=== PATIENT | male | born 1970 | race Caucasian/White ===

== ENCOUNTER 2020-07-09 16:52 | Emergency (ER) | payer OTHER ==
[2020-07-09 16:59] VITALS: BP 147/82; PULSE 86; TEMP 98.3; BMI 32.3
[2020-07-09] MEDS ORDERED: FLUORESCEIN NA 1 EA STRIP OD ONE (17:56)
[2020-07-09] MEDS ORDERED: TETRACAINE 0.5% HCL 0.6ML DROPPER.BOTTLE OD ONE (17:56)
[2020-07-09] MEDS ORDERED: TETRACAINE 0.5% OPHTH SOLN 2 ML BOTTLE ONE (17:57)
[2020-07-09] MEDS ORDERED: ERYTHROMYCIN 0.5% OPHTHALMIC OINTMENT 3.5 GM TUBE OS ONE (18:16)
[2020-07-09] MEDS ORDERED: ERYTHROMYCIN 0.5% OPHTHALMIC OINTMENT 3.5 GM TUBE ONE (18:31)
== END 2020-07-09 18:34 | disposition home or self-care (01) ==
LOC: JER 16:52 → JERFT 16:52
DX: S05.02XA Injury of conjunctiva and corneal abrasion without foreign body, left eye, initial encounter (principal)
CPT/HCPCS: 99283-25

== ENCOUNTER 2023-03-30 10:07 | Inpatient (IN) | payer OTHER ==
[2023-03-30] MEDS ORDERED: SODIUM CHLORIDE 0.9% 1000 ML INFUS.BAG IV ONE (10:38)
[2023-03-30] MEDS ORDERED: FAMOTIDINE 20 MG/50 ML IVPB 20 MG/50 ML MG IVPB ONE ×2 (10:38→11:11)
[2023-03-30] MEDS ORDERED: ACETAMINOPHEN 1000 MG/100 ML BAG IVPB ONE (10:39)
[2023-03-30] MEDS ORDERED: ACETAMINOPHEN INJECTION 100 ML IVPB ONE (11:12)
[2023-03-30 11:55] LABS: INR 1.39 (0.83-1.09); PROTHROMBIN TIME (PATIENT) 16.1 SEC (9.7-13.0)
[2023-03-30 11:57] LABS: ACTIVATED PTT 37.5 SECONDS (25.2-36.5)
[2023-03-30 11:58] LABS: HEMATOCRIT 49.7 % (35.4-49); HEMOGLOBIN 16.7 G/dL (11.7-16.9); MCH 28.1 pg (25.7-33.7); MCHC 33.5 g/dl (32.0-35.9); MEAN CELL VOLUME 83.8 fl (80-96); RBC 5.93 10^6/uL (4.00-5.60); RDW 15.2 % (11.9-15.9); WHITE BLOOD COUNT 13.9 10^3/uL (4.0-10.8)
[2023-03-30 12:11] LABS: ALBUMIN 4.4 g/dl (3.4-5.0); BILIRUBIN,TOTAL 1.7 mg/dl (0.2-1); BLOOD UREA NITROGEN 15.5 mg/dl (7-18); POTASSIUM 3.5 mmol/L (3.5-5.1); SGOT/AST 22.2 U/L (15-37); SGPT/ALT 36.6 U/L (7-52); TOT PROT 7.7 g/dl (6.4-8.2)
[2023-03-30 12:35] LABS: URINE MUCUS FEW
[2023-03-30 13:03] LABS: PLATELET ESTIMATE ADEQUATE
[2023-03-30] MEDS ORDERED: PIPERACILLIN/TAZOB 4.5 GM 4.5 GM in DEXTROSE 5%-WATER 100 ML IVPB ONE (13:25)
[2023-03-30] MEDS ORDERED: PIPERACILLIN/TAZOBACTAM 4.5 GM VIAL IVPB ONE (14:01)
[2023-03-30] MEDS ORDERED: PIPERACILLIN/TAZOB 3.375 GM 3.375 GM in DEXTROSE 5%-WATER - 50 ML IVPB ONE (21:44)
[2023-03-30] MEDS: SODIUM CHLORIDE 1,000 ML IV SCH (23:18)
[2023-03-31] MEDS ORDERED: ACETAMINOPHEN 1000 MG/100 ML BAG IVPB PRN (08:30)
[2023-03-31] MEDS ORDERED: PIPERACILLIN/TAZOB 4.5 GM 4.5 GM in DEXTROSE 5%-WATER 100 ML IVPB SCH (09:00)
[2023-03-31] MEDS: PIPERACILLIN/TAZOB 3.375 GM 3.375 GM in DEXTROSE 5%-WATER - 50 ML IVPB SCH ×2 (11:02→18:12)
[2023-03-31 11:39] LABS: BASO % 0.2 % (0-2.0); EOS % 0.1 % (0-4.5); HEMATOCRIT 42.6 % (35.4-49); HEMOGLOBIN 14.2 GM/dL (11.7-16.9); MCH 27.4 pg (25.7-33.7); MCHC 33.4 g/dl (32.0-35.9); MEAN PLT VOLUME 8.7 fl (7.5-11.1); MONO % 7.1 % (3.8-10.2); NEUT % 80.6 % (42.8-82.8); PLATELET COUNT 221 10^3/uL (134-434); RBC 5.19 M/mm3 (4.00-5.60); RDW 14.2 % (11.9-15.9); WHITE BLOOD COUNT 12.4 K/mm3 (4.0-10.0)
[2023-03-31 16:13] VITALS: BMI 32.5
[2023-03-31] MEDS: SODIUM CHLORIDE 1,000 ML IV SCH (17:34)
[2023-04-01] MEDS: PIPERACILLIN/TAZOB 3.375 GM 3.375 GM in DEXTROSE 5%-WATER - 50 ML IVPB SCH ×3 (02:20→17:31)
[2023-04-01] MEDS: SODIUM CHLORIDE 1,000 ML IV SCH (06:16)
[2023-04-01] MEDS: LEVOTHYROXINE NA 50 MCG TABLET (FP) PO SCH (06:16)
[2023-04-01 10:34] LABS: BASO % 0.2 % (0-2.0); EOS % 0.3 % (0-4.5); HEMOGLOBIN 14.6 GM/dL (11.7-16.9); LYMPH % 13.4 % (8-40); MCH 27.9 pg (25.7-33.7); MCHC 33.9 g/dl (32.0-35.9); MEAN CELL VOLUME 82.2 fl (80-96); MEAN PLT VOLUME 8.1 fl (7.5-11.1); MONO % 8.4 % (3.8-10.2); NEUT % 77.7 % (42.8-82.8); PLATELET COUNT 235 10^3/uL (134-434); RBC 5.24 M/mm3 (4.00-5.60); RDW 13.8 % (11.9-15.9)
[2023-04-01 10:50] LABS: POTASSIUM 3.4 mmol/L (3.5-5.1)
[2023-04-01 10:57] LABS: BLOOD UREA NITROGEN 14.4 mg/dL (7-18)
[2023-04-01 11:05] LABS: ALBUMIN 2.8 g/dl (3.4-5.0); CALCIUM 8.2 mg/dL (8.5-10.1)
[2023-04-01 11:07] LABS: CREATININE 0.8 mg/dL (0.55-1.3)
[2023-04-01 11:10] LABS: BILIRUBIN,TOTAL 1.1 mg/dL (0.2-1); TOT PROT 6.6 g/dl (6.4-8.2)
[2023-04-01] MEDS ORDERED: SODIUM CHLORIDE 0.9%/KCL 20 MEQ/1,000 ML INFUS.BAG IV SCH (12:15)
[2023-04-02] MEDS: PIPERACILLIN/TAZOB 3.375 GM 3.375 GM in DEXTROSE 5%-WATER - 50 ML IVPB SCH ×3 (02:30→17:39)
[2023-04-02] MEDS: SODIUM CHLORIDE 1,000 ML with POTASSIUM CHLORIDE 20 MEQ IV SCH ×2 (05:31→22:23)
[2023-04-02] MEDS: LEVOTHYROXINE NA 50 MCG TABLET (FP) PO SCH (06:40)
[2023-04-02 11:13] LABS: HEMATOCRIT 42.1 % (35.4-49); HEMOGLOBIN 15.1 GM/dL (11.7-16.9); MCH 28.7 pg (25.7-33.7); MCHC 35.8 g/dl (32.0-35.9); MEAN CELL VOLUME 80.3 fl (80-96); MEAN PLT VOLUME 7.7 fl (7.5-11.1); PLATELET COUNT 263 10^3/uL (134-434); RBC 5.24 M/mm3 (4.00-5.60); WHITE BLOOD COUNT 9.2 K/mm3 (4.0-10.0)
[2023-04-02 11:38] LABS: POTASSIUM 3.6 mmol/L (3.5-5.1)
[2023-04-02 11:49] LABS: ALBUMIN 2.9 g/dl (3.4-5.0); BLOOD UREA NITROGEN 11.9 mg/dL (7-18); CALCIUM 8.3 mg/dL (8.5-10.1)
[2023-04-02 11:51] LABS: CREATININE 0.8 mg/dL (0.55-1.3)
[2023-04-02 11:53] LABS: BILIRUBIN,TOTAL 0.9 mg/dL (0.2-1)
[2023-04-02 11:54] LABS: TOT PROT 6.8 g/dl (6.4-8.2)
[2023-04-03] MEDS: PIPERACILLIN/TAZOB 3.375 GM 3.375 GM in DEXTROSE 5%-WATER - 50 ML IVPB SCH ×3 (01:10→17:10)
[2023-04-03] MEDS: LEVOTHYROXINE NA 50 MCG TABLET (FP) PO SCH (06:17)
[2023-04-03] MEDS ORDERED: ACETAMINOPHEN 325 MG TABLET (FP) PO PRN (08:16)
[2023-04-03] MEDS: SODIUM CHLORIDE 1,000 ML with POTASSIUM CHLORIDE 20 MEQ IV SCH ×2 (09:20→10:30)
[2023-04-04] MEDS: PIPERACILLIN/TAZOB 3.375 GM 3.375 GM in DEXTROSE 5%-WATER - 50 ML IVPB SCH ×3 (01:20→17:30)
[2023-04-04] MEDS ORDERED: SIMETHICONE 80 MG TAB.CHEW (FP) PO PRN (06:08)
[2023-04-04] MEDS: LEVOTHYROXINE NA 50 MCG TABLET (FP) PO SCH (06:12)
[2023-04-04] MEDS: SODIUM CHLORIDE 1,000 ML with POTASSIUM CHLORIDE 20 MEQ IV SCH ×2 (06:14→19:11)
[2023-04-04 09:46] LABS: HEMATOCRIT 45.1 % (35.4-49); HEMOGLOBIN 15.1 GM/dL (11.7-16.9); MCH 27.6 pg (25.7-33.7); MCHC 33.6 g/dl (32.0-35.9); MEAN CELL VOLUME 82.1 fl (80-96); PLATELET COUNT 296 10^3/uL (134-434); RBC 5.49 M/mm3 (4.00-5.60); WHITE BLOOD COUNT 11.8 K/mm3 (4.0-10.0)
[2023-04-04 09:52] LABS: POTASSIUM 3.7 mmol/L (3.5-5.1)
[2023-04-04 10:00] LABS: ALBUMIN 3.1 g/dl (3.4-5.0); BLOOD UREA NITROGEN 6.8 mg/dL (7-18); CREATININE 0.8 mg/dL (0.55-1.3)
[2023-04-04 10:02] LABS: BILIRUBIN,TOTAL 0.6 mg/dL (0.2-1)
[2023-04-04 10:03] LABS: CALCIUM 8.5 mg/dL (8.5-10.1)
[2023-04-04] MEDS ORDERED: ACETAMINOPHEN 325 MG TABLET (FP) PO ONE (11:45)
[2023-04-05] MEDS: PIPERACILLIN/TAZOB 3.375 GM 3.375 GM in DEXTROSE 5%-WATER - 50 ML IVPB SCH ×3 (03:21→17:53)
[2023-04-05] MEDS: LEVOTHYROXINE NA 50 MCG TABLET (FP) PO SCH (06:24)
[2023-04-05] MEDS: SODIUM CHLORIDE 0.9%/KCL 20 MEQ/1,000 ML INFUS.BAG IV SCH ×2 (08:25→18:01)
[2023-04-05 08:38] LABS: BASO % 0.6 % (0-2.0); EOS % 1.4 % (0-4.5); HEMOGLOBIN 14.3 GM/dL (11.7-16.9); LYMPH % 15.5 % (8-40); MCHC 34.2 g/dl (32.0-35.9); MEAN CELL VOLUME 82.1 fl (80-96); MEAN PLT VOLUME 7.5 fl (7.5-11.1); NEUT % 71.5 % (42.8-82.8); PLATELET COUNT 309 10^3/uL (134-434); RBC 5.11 M/mm3 (4.00-5.60); RDW 14.1 % (11.9-15.9); WHITE BLOOD COUNT 8.8 K/mm3 (4.0-10.0)
[2023-04-05 08:54] LABS: POTASSIUM 3.8 mmol/L (3.5-5.1)
[2023-04-05 08:56] LABS: BLOOD UREA NITROGEN 7.8 mg/dL (7-18); CALCIUM 8.4 mg/dL (8.5-10.1)
[2023-04-05 09:00] LABS: CREATININE 0.9 mg/dL (0.55-1.3)
[2023-04-06] MEDS: PIPERACILLIN/TAZOB 3.375 GM 3.375 GM in DEXTROSE 5%-WATER - 50 ML IVPB SCH ×2 (01:37→09:09)
[2023-04-06 08:13] VITALS: BP 128/96; PULSE 84; RESP 19; TEMP 98.2
[2023-04-06 10:52] LABS: POTASSIUM 3.8 mmol/L (3.5-5.1)
[2023-04-06 10:56] LABS: CALCIUM 8.3 mg/dL (8.5-10.1)
[2023-04-06 10:57] LABS: ALBUMIN 2.8 g/dl (3.4-5.0); BLOOD UREA NITROGEN 9.8 mg/dL (7-18)
[2023-04-06 11:01] LABS: BILIRUBIN,TOTAL 0.6 mg/dL (0.2-1); TOT PROT 6.9 g/dl (6.4-8.2)
[2023-04-06 11:06] LABS: BASO % 0.8 % (0-2.0); EOS % 0.9 % (0-4.5); HEMATOCRIT 43.1 % (35.4-49); HEMOGLOBIN 14.4 GM/dL (11.7-16.9); LYMPH % 16.4 % (8-40); MCH 27.7 pg (25.7-33.7); MCHC 33.4 g/dl (32.0-35.9); MEAN PLT VOLUME 7.5 fl (7.5-11.1); MONO % 7.3 % (3.8-10.2); NEUT % 74.6 % (42.8-82.8); PLATELET COUNT 353 10^3/uL (134-434); RDW 13.9 % (11.9-15.9); WHITE BLOOD COUNT 7.7 K/mm3 (4.0-10.0)
== END 2023-04-06 11:01 | disposition home or self-care (01) | DRG 244 ==
LOC: FER 10:07 → J5S 21:34
PROVIDERS: ADMIT Internal Medicine; ATTEND Internal Medicine
DX: K57.20 Diverticulitis of large intestine with perforation and abscess without bleeding (principal); I10 Essential (primary) hypertension; E03.9 Hypothyroidism, unspecified; R50.9 Fever, unspecified; E66.9 Obesity, unspecified; Z68.32 Body mass index [BMI] 32.0-32.9, adult; Q21.3 Tetralogy of Fallot; N39.0 Urinary tract infection, site not specified; B95.2 Enterococcus as the cause of diseases classified elsewhere; Z95.810 Presence of automatic (implantable) cardiac defibrillator
CPT/HCPCS: 36415; 74177-TC; 80048; 80053; 81003; 81015; 85025; 85027; 85610; 85730; 86140; 86850; 86900; 86901; 87040; 87086; 87186; 99285-25; Q9967

== ENCOUNTER 2023-07-23 10:51 | Inpatient (IN) | payer OTHER ==
[2023-07-23] MEDS ORDERED: SODIUM CHLORIDE 0.9% 500 ML INFUS.BAG IV ONE (11:15)
[2023-07-23] MEDS ORDERED: ACETAMINOPHEN 1000 MG/100 ML BAG IVPB ONE (11:15)
[2023-07-23] MEDS ORDERED: ACETAMINOPHEN INJECTION 100 ML IVPB ONE (11:43)
[2023-07-23 12:20] LABS: BASO % 0.4 % (0-2.0); EOS % 0.5 % (0-4.5); HEMATOCRIT 46.5 % (35.4-49); HEMOGLOBIN 15.8 GM/dL (11.7-16.9); LYMPH % 14.3 % (8-40); MCH 28.1 pg (25.7-33.7); MEAN CELL VOLUME 82.5 fl (80-96); MEAN PLT VOLUME 7.9 fl (7.5-11.1); MONO % 6.4 % (3.8-10.2); NEUT % 78.4 % (42.8-82.8); PLATELET COUNT 238 10^3/uL (134-434); RBC 5.64 M/mm3 (4.00-5.60); RDW 14.3 % (11.9-15.9); WHITE BLOOD COUNT 11.1 K/mm3 (4.0-10.0)
[2023-07-23 12:34] LABS: POTASSIUM 3.8 mmol/L (3.5-5.1)
[2023-07-23 12:36] LABS: CALCIUM 8.9 mg/dL (8.5-10.1)
[2023-07-23 12:37] LABS: ALBUMIN 3.6 g/dl (3.4-5.0); BLOOD UREA NITROGEN 17.9 mg/dL (7-18)
[2023-07-23 12:40] LABS: CREATININE 0.9 mg/dL (0.55-1.3)
[2023-07-23 12:41] LABS: BILIRUBIN,TOTAL 0.6 mg/dL (0.2-1); TOT PROT 7.5 g/dl (6.4-8.2)
[2023-07-23 14:25] VITALS: RESP 18
[2023-07-23] MEDS ORDERED: PIPERACILLIN/TAZOB 3.375 GM 3.375 GM in DEXTROSE 5%-WATER - 50 ML IVPB ONE (14:38)
[2023-07-23 14:46] LABS: INR 1.14 (0.83-1.09); PROTHROMBIN TIME (PATIENT) 13.2 SEC (9.7-13.0)
[2023-07-23] MEDS ORDERED: PIPERACILLIN/TAZOB 3.375 GM 3.375 GM/50 ML BAG IVPB ONE (15:12)
[2023-07-23] MEDS: D5-1/2NS+10 MEQ KCL - 10 MEQ/1,000 ML INFUS.BAG IV SCH (19:14)
[2023-07-23] MEDS ORDERED: PIPERACILLIN/TAZOB 3.375 GM 3.375 GM in DEXTROSE 5%-WATER - 50 ML IVPB SCH (21:00)
[2023-07-23] MEDS: PIPERACILLIN/TAZOB 3.375 GM 3.375 GM in DEXTROSE 5%-WATER - 50 ML IVPB SCH (22:00)
[2023-07-24] MEDS: ACETAMINOPHEN 1000 MG/100 ML BAG IVPB PRN ×2 (00:39→15:52)
[2023-07-24 03:39] VITALS: BMI 32.8
[2023-07-24] MEDS: PIPERACILLIN/TAZOB 3.375 GM 3.375 GM in DEXTROSE 5%-WATER - 50 ML IVPB SCH ×3 (05:49→17:45)
[2023-07-24] MEDS: LEVOTHYROXINE NA 50 MCG TABLET (FP) PO SCH (06:58)
[2023-07-24 10:09] LABS: HEMOGLOBIN 15.4 GM/dL (11.7-16.9); MCH 27.9 pg (25.7-33.7); MCHC 33.5 g/dl (32.0-35.9); MEAN CELL VOLUME 83.2 fl (80-96); MEAN PLT VOLUME 8.1 fl (7.5-11.1); PLATELET COUNT 215 10^3/uL (134-434); RBC 5.53 M/mm3 (4.00-5.60); RDW 14.1 % (11.9-15.9); WHITE BLOOD COUNT 11.1 K/mm3 (4.0-10.0)
[2023-07-24 10:27] LABS: POTASSIUM 3.5 mmol/L (3.5-5.1)
[2023-07-24 10:30] LABS: CALCIUM 8.5 mg/dL (8.5-10.1)
[2023-07-24 10:31] LABS: ALBUMIN 3.1 g/dl (3.4-5.0); BLOOD UREA NITROGEN 9.5 mg/dL (7-18)
[2023-07-24 10:36] LABS: BILIRUBIN,TOTAL 2.4 mg/dL (0.2-1); TOT PROT 6.7 g/dl (6.4-8.2)
[2023-07-24] MEDS: D5-1/2NS+10 MEQ KCL - 10 MEQ/1,000 ML INFUS.BAG IV SCH (18:12)
[2023-07-25] MEDS: PIPERACILLIN/TAZOB 3.375 GM 3.375 GM in DEXTROSE 5%-WATER - 50 ML IVPB SCH ×3 (02:16→17:19)
[2023-07-25] MEDS: LEVOTHYROXINE NA 50 MCG TABLET (FP) PO SCH (06:15)
[2023-07-25] MEDS: D5-1/2NS+10 MEQ KCL - 10 MEQ/1,000 ML INFUS.BAG IV SCH ×2 (06:17→21:18)
[2023-07-25 10:30] LABS: HEMATOCRIT 44.5 % (35.4-49); HEMOGLOBIN 15.4 GM/dL (11.7-16.9); MCH 28.4 pg (25.7-33.7); MCHC 34.5 g/dl (32.0-35.9); MEAN CELL VOLUME 82.5 fl (80-96); MEAN PLT VOLUME 8.4 fl (7.5-11.1); PLATELET COUNT 213 10^3/uL (134-434); RDW 13.9 % (11.9-15.9); WHITE BLOOD COUNT 10.2 K/mm3 (4.0-10.0)
[2023-07-25 10:42] LABS: POTASSIUM 3.6 mmol/L (3.5-5.1)
[2023-07-25 10:46] LABS: BLOOD UREA NITROGEN 9.8 mg/dL (7-18); CALCIUM 8.3 mg/dL (8.5-10.1)
[2023-07-25 10:49] LABS: CREATININE 0.9 mg/dL (0.55-1.3)
[2023-07-25 10:50] LABS: BILIRUBIN,TOTAL 2.4 mg/dL (0.2-1)
[2023-07-26] MEDS: PIPERACILLIN/TAZOB 3.375 GM 3.375 GM in DEXTROSE 5%-WATER - 50 ML IVPB SCH ×3 (02:03→17:03)
[2023-07-26] MEDS: LEVOTHYROXINE NA 50 MCG TABLET (FP) PO SCH (06:02)
[2023-07-26 10:44] LABS: POTASSIUM 3.6 mmol/L (3.5-5.1)
[2023-07-26 10:53] LABS: BASO % 0.4 % (0-2.0); EOS % 1.2 % (0-4.5); HEMATOCRIT 44.5 % (35.4-49); HEMOGLOBIN 15.6 GM/dL (11.7-16.9); LYMPH % 20.4 % (8-40); MCH 28.9 pg (25.7-33.7); MCHC 35.1 g/dl (32.0-35.9); MEAN CELL VOLUME 82.3 fl (80-96); MONO % 10.8 % (3.8-10.2); NEUT % 67.2 % (42.8-82.8); PLATELET COUNT 226 10^3/uL (134-434); RBC 5.41 M/mm3 (4.00-5.60); WHITE BLOOD COUNT 6.7 K/mm3 (4.0-10.0)
[2023-07-26 11:00] LABS: BLOOD UREA NITROGEN 8.6 mg/dL (7-18); CALCIUM 8.5 mg/dL (8.5-10.1)
[2023-07-26 11:05] LABS: BILIRUBIN,TOTAL 1.2 mg/dL (0.2-1)
[2023-07-26] MEDS: D5-1/2NS+10 MEQ KCL - 10 MEQ/1,000 ML INFUS.BAG IV SCH (11:18)
[2023-07-27] MEDS: D5-1/2NS+10 MEQ KCL - 10 MEQ/1,000 ML INFUS.BAG IV SCH (00:12)
[2023-07-27] MEDS: PIPERACILLIN/TAZOB 3.375 GM 3.375 GM in DEXTROSE 5%-WATER - 50 ML IVPB SCH ×3 (02:12→17:17)
[2023-07-27] MEDS: LEVOTHYROXINE NA 50 MCG TABLET (FP) PO SCH (06:33)
[2023-07-27] MEDS ORDERED: ACETAMINOPHEN 500 MG TABLET (FP) PO PRN (08:49)
[2023-07-27 08:59] LABS: BASO % 0.7 % (0-2.0); HEMATOCRIT 45.1 % (35.4-49); HEMOGLOBIN 15.3 GM/dL (11.7-16.9); LYMPH % 25.2 % (8-40); MCH 28.1 pg (25.7-33.7); MCHC 33.9 g/dl (32.0-35.9); MEAN CELL VOLUME 82.9 fl (80-96); MONO % 11.6 % (3.8-10.2); NEUT % 60.5 % (42.8-82.8); PLATELET COUNT 251 10^3/uL (134-434); RBC 5.45 M/mm3 (4.00-5.60); WHITE BLOOD COUNT 5.5 K/mm3 (4.0-10.0)
[2023-07-27 09:30] LABS: POTASSIUM 3.8 mmol/L (3.5-5.1)
[2023-07-27 09:37] LABS: CALCIUM 8.4 mg/dL (8.5-10.1)
[2023-07-27 09:38] LABS: BLOOD UREA NITROGEN 7.1 mg/dL (7-18)
[2023-07-27] MEDS: POTASSIUM CHLORIDE 10 MEQ in DEXTROSE 5%-0.45% SALINE 1,000 ML IV SCH (14:27)
[2023-07-28] MEDS: PIPERACILLIN/TAZOB 3.375 GM 3.375 GM in DEXTROSE 5%-WATER - 50 ML IVPB SCH ×3 (01:10→17:56)
[2023-07-28] MEDS: POTASSIUM CHLORIDE 10 MEQ in DEXTROSE 5%-0.45% SALINE 1,000 ML IV SCH ×2 (06:10→14:49)
[2023-07-28] MEDS: LEVOTHYROXINE NA 50 MCG TABLET (FP) PO SCH (06:10)
[2023-07-28 10:32] LABS: HEMATOCRIT 44.1 % (35.4-49); HEMOGLOBIN 14.9 GM/dL (11.7-16.9); MCH 28.2 pg (25.7-33.7); MCHC 33.9 g/dl (32.0-35.9); MEAN CELL VOLUME 83.1 fl (80-96); MEAN PLT VOLUME 8.2 fl (7.5-11.1); PLATELET COUNT 204 10^3/uL (134-434); WHITE BLOOD COUNT 6.6 K/mm3 (4.0-10.0)
[2023-07-28 10:49] LABS: POTASSIUM 3.7 mmol/L (3.5-5.1)
[2023-07-28 10:57] LABS: BLOOD UREA NITROGEN 8.9 mg/dL (7-18); CALCIUM 8.6 mg/dL (8.5-10.1)
[2023-07-28 11:02] LABS: BILIRUBIN,TOTAL 0.6 mg/dL (0.2-1)
[2023-07-28] MEDS: D5-1/2NS+10 MEQ KCL - 10 MEQ/1,000 ML INFUS.BAG IV SCH (17:55)
[2023-07-29] MEDS: PIPERACILLIN/TAZOB 3.375 GM 3.375 GM in DEXTROSE 5%-WATER - 50 ML IVPB SCH (01:02)
[2023-07-29] MEDS: LEVOTHYROXINE NA 50 MCG TABLET (FP) PO SCH (06:27)
[2023-07-29] MEDS: D5-1/2NS+10 MEQ KCL - 10 MEQ/1,000 ML INFUS.BAG IV SCH (06:28)
[2023-07-29] MEDS: AMOX TR/POT CLAV 875MG/125MG TABLETS (FP) PO SCH ×2 (09:05→17:23)
[2023-07-29] MEDS ORDERED: metroNIDAZOLE 250 MG TABLET PO SCH (14:00)
[2023-07-29 15:01] VITALS: PULSE 77; TEMP 98
[2023-07-29 15:07] VITALS: BP 117/76
== END 2023-07-29 18:45 | disposition home or self-care (01) | DRG 244 ==
LOC: JERFT 10:51 → JERBED 14:47 → J6S 21:04
PROVIDERS: ADMIT Internal Medicine; ATTEND Internal Medicine
DX: K57.20 Diverticulitis of large intestine with perforation and abscess without bleeding (principal); I10 Essential (primary) hypertension; E03.9 Hypothyroidism, unspecified
CPT/HCPCS: 36415; 74177-TC; 80048; 80053; 82962; 85025; 85027; 85610; 86850; 86900; 86901; 93005; 93010; 99285-25; J0131

== ENCOUNTER 2023-10-09 04:36 | Day surgery (SDC) | payer OTHER ==
[2023-10-08 12:47] VITALS: BMI 31.2
[2023-10-09 08:46] VITALS: TEMP 97.7
[2023-10-09 08:47] VITALS: PULSE 82
[2023-10-09 09:25] VITALS: BP 117/70; RESP 15
== END 2023-10-09 09:25 | disposition home or self-care (01) ==
LOC: JASU-ENDO 04:36
PROVIDERS: ATTEND Student in an Organized Health Care Education/Training Program
PROC: 0DBN8ZX Excision of Sigmoid Colon, Via Natural or Artificial Opening Endoscopic, Diagnostic (ICD-10-PCS; principal; 2023-10-09 08:00)
DX: K63.89 Other specified diseases of intestine (principal); K64.8 Other hemorrhoids; K57.30 Diverticulosis of large intestine without perforation or abscess without bleeding; Z87.19 Personal history of other diseases of the digestive system
CPT/HCPCS: 88305-TC